=== PATIENT | female | born 1985 | race Caucasian/White ===

== ENCOUNTER 2019-05-19 03:04 | Inpatient (IN) ==
[2019-05-19] MEDS ORDERED: PENICILLIN G POTASSIUM 3 MU in DEXTROSE 5% 100 ML IV PRN (05:50)
[2019-05-19] MEDS ORDERED: PENICILLIN G POTASSIUM 6 MU in DEXTROSE 5% 250 ML IV STA (05:50)
[2019-05-19] MEDS ORDERED: OXYTOCIN 30 UNITS/500 ML BAG IV PRN ×2 (05:50→17:17)
[2019-05-19 06:06] LABS: Hematocrit (blood only) 36.1 % (37-47); Hemoglobin 12.6 g/dL (12.0-16.0); Mean Corpuscular Hemoglobin 31.7 pg (25-34); Mean Corpuscular Volume 90.9 fL (80-100); Mean Platelet Volume 9.9 fL (7.4-10.4); Platelet Count 234 K/uL (130-400); RDW Coefficient of Variation 13.8 % (11.5-14.5); RDW Standard Deviation 45.8 fL (36.4-46.3); Red Blood Count 3.97 M/uL (4.2-5.4); White Blood Count 17.25 K/uL (4.8-10.8)
[2019-05-19 06:11] LABS: Mean Corpuscular Hgb Conc 34.9 g/dL (32-36)
[2019-05-19] MEDS: LACTATED RINGER'S 1,000 ML IV PRN ×2 (06:21→09:07)
[2019-05-19] MEDS ORDERED: fentaNYL citrate 100 MCG/2 ML VIAL ONE (08:16)
[2019-05-19] MEDS ORDERED: ePHEDrine sulfate 50 MG/ML AMP ONE (08:16)
[2019-05-19] MEDS ORDERED: BUPIVACAINE 0.25% 30 ML VIAL ONE ×2 (08:16→10:50)
[2019-05-19] MEDS ORDERED: fentaNYL 2MCG/ML ROPIV 1.25MG/ML 100 ML BAG EPI ONE (08:17)
--- NOTE | 2019-05-19 08:41 | Anesthesiology Consultation ---
Date of Service May 19, 2019 Assessment & Plan (1) Encounter for pre-operative examination: Chart Review Chart Review: Patient NOT seen in Pre Admission Testing and Acceptable Risk for Labor Epidural Consults Requested none ASA ASA2 Proposed Anesthesia Anesthesia Type: Labor Epidural Regional Laterality: Left Risk / Benefits Reviewed With: PT / POA / Parent / Guardian, Accepts Plan and Informed Consent Obtained History Height/Weight Height: 5 ft 6 in Weight: 95.708 kg Allergies Allergy/AdvReac Type Severity Reaction Status Date / Time PROzac TABS Allergy Unknown Uncoded 05/08/19 10:41 Medications Home Medications Medication Instructions Recorded Confirmed Last Taken sertraline 150 mg PO DAILY 02/15/19 05/19/19 1 Day Ago ~05/18/19 Active Medications Generic Name Dose Route Start Last Admin Trade Name Freq PRN Reason Stop Dose Admin Lactated Ringer's 1,000 mls @ 125 mls/hr 05/19/19 05:50 05/19/19 09:07 Lr IV 05/21/19 05:49 999 mls/hr .Q8H PRN Administration L&D Protocol Protocol NPO Date Last Intake of Fluids: 05/19/19 Time Last Intake of Fluids: 08:42 Date Last Intake of Solids: 05/18/19 Time Last Intake of Solids: 10:30 Past Medical History Medical History History of varicella Exercise / Class Metabolic Activity II 4-5 Yardwork/Stairs/Walk up hill Past Surgical History Surgical History History of tonsillectomy Past Anesthesia History No Hx of Anesthesia Complications History of PONV No Hx of PONV Social History Smoking Status: Former smoker Do You Dip or Chew Tobacco: No Hx Alcohol Use: No Hx Substance Use: No Review of Systems Patient denies history of abnormal bleeding or bleeding disorder. Patient denies active use of anticoagulants other than low dose aspirin. Patient denies numbness, tingling or weakness in lower extremities. Physical Exam Vital Signs Last Vital Signs Temp 36.8 C 05/19/19 07:05 Pulse 76 05/19/19 08:35 Resp 20 05/19/19 07:05 BP 143/80 H 05/19/19 07:07 Pulse Ox 98 05/19/19 08:35 Constitutional not obese () ENMT Mouth: no TMJ abnormality and oral opening not small Thyromental Distance: > or= 3.5 Finger Breadths Mallampati Class: II Neck normal visual inspection; neck extension not limited Respiratory normal respiratory effort Auscultation: lungs clear to auscultation bilaterally Cardiovascular Rate/Rhythm: regular rate and regular rhythm Heart Sounds: no murmur Neurologic moves all extremities Motor/Sensory: no sensory deficit Psychiatric Orientation: alert and oriented x 3 Testing Laboratory Results 05/19/19 05:58
[2019-05-19] MEDS ORDERED: NALOXONE HCL 1 MG in SODIUM CHLORIDE 0.9% 1000ML 1,000 ML IV PRN (09:45)
[2019-05-19] MEDS ORDERED: NALOXONE HCL 0.4 MG/1 ML VIAL/CARP IV PRN (09:45)
[2019-05-19] MEDS ORDERED: ePHEDrine sulfate 50 MG/ML AMP IV PRN (09:45)
[2019-05-19] MEDS ORDERED: NALBUPHINE HCL INJ 10 MG/ML AMP IV PRN (09:45)
[2019-05-19] MEDS ORDERED: DiphenhydrAMINE HCL 50 MG/ML VIAL IV PRN (09:45)
[2019-05-19] MEDS ORDERED: ONDANSETRON INJ 2 MG/ML 2 ML VIAL IV PRN (09:45)
[2019-05-19] MEDS ORDERED: fentaNYL 2MCG/ML ROPIV 1.25MG/ML 100 ML BAG EPI PRN (09:45)
--- NOTE | 2019-05-19 10:20 | History & Physical Report ---
Date of Service May 19, 2019 Assessment & Plan (1) Supervision of elderly primigravida: 33YO at 39.3 weeks GA. Labor 1. Fetus: Cat 1 2: Labor: Progressing. Will AROM when PCN complete 3. Vitals: WNL 4. GBS: Positive History of Present Illness Primary Care Provider: Cecy Sanford, 33YO at 39.3 weeks GA. Present for labor. Denied VB, LOF. Good FM. complicated by AMA, GBS positive. Allergies Allergy/AdvReac Type Severity Reaction Status Date / Time PROzac TABS Allergy Unknown Uncoded 05/08/19 10:41 Home Medications Home Medications Medication Instructions Recorded Confirmed Type sertraline 150 mg PO DAILY 02/15/19 05/19/19 History Patient History Medical History History of varicella Surgical History History of tonsillectomy Social History Preferred Language: [place]an Communication Ability: Effective Beliefs That Will Affect Care: None marital status: Single Current Living Situation Comment: Lives with friend Other Information That Helps Us Care for You: No Feels Safe at Home: Yes Safety Concerns: Feels Safe At This Time Smoking Status: Former smoker Do You Dip or Chew Tobacco: No ; Second Hand Exposure: No ; Tobacco Cessation Education Requested by Patient: No Hx Alcohol Use: No Hx Substance Use: No Physical Exam Constitutional: WD/WN, vitals as above Psychiatric: A+Ox3, euthymic affect Genitourinary: OB Exam Abdomen: + vertex Manual OB Exam: + cervical d ilation (3/80/-3> 4.5/80/-3) and + amniotic fluid OB Exam Monitor Tracing: + external FHT monitor used, + external uterine monitor used, + category I and + normal FHT variability Results & Data Vital Signs (Past 12 Hours) Vital Signs Temp Pulse Resp BP 05/19/19 03:25 37.0 C 76 20 135/80 05/19/19 03:18 76 135/80
--- NOTE | 2019-05-19 10:29 | Labor Progress Brief Note ---
Date of Service May 19, 2019 Subjective Reason For Note: Routine Evaluation Assessment & Plan (1) Supervision of elderly primigravida: 33YO at 39.3 weeks GA. Labor 1. Fetus: Cat 1 2: Labor: Progressing. AROM clr 3. Vitals: WNL 4. GBS Positive - PCN Physical Exam Genitourinary: Manual OB Exam: + cervical dilation 8 cm, + cervical effacement 100%, + station 0 and + amniotic fluid clear OB Exam Monitor Tracing: + external FHT monitor used, + external uterine monitor used, + category I and + normal FHT variability Results & Data Vital Signs (Past 12 Hours) Vital Signs Temp Pulse Resp BP Pulse Ox 05/19/19 10:25 73 94 05/19/19 10:21 80 93 05/19/19 10:20 77 94 05/19/19 10:15 71 97 05/19/19 10:11 71 145/71 H 05/19/19 10:10 71 98 05/19/19 10:09 66 177/81 H 05/19/19 10:08 68 172/91 H 05/19/19 10:05 86 100 05/19/19 10:04 92 H 151/66 H 05/19/19 10:00 88 130/57 L 95 05/19/19 09:56 85 94 05/19/19 09:55 84 96 05/19/19 09:53 84 129/60 05/19/19 09:50 85 96 05/19/19 09:48 86 20 139/64 05/19/19 09:45 81 20 137/60 97 05/19/19 09:40 80 98 05/19/19 09:36 81 20 125/63 05/19/19 09:35 89 132/72 98 05/19/19 09:32 80 20 130/71 05/19/19 09:30 36.5 C 88 16 130/71 97 05/19/19 09:29 93 H 20 129/59 L 05/19/19 09:27 93 H 20 125/71 05/19/19 09:25 85 96 05/19/19 09:24 86 130/60 05/19/19 09:22 88 133/63 05/19/19 09:21 85 128/59 L 05/19/19 09:20 86 96 05/19/19 09:17 83 132/72 11/10/19 09:15 77 134/82 98 05/19/19 09:13 76 137/82 05/19/19 09:10 77 97 05/19/19 09:05 77 96 05/19/19 09:00 92 H 97 05/19/19 08:55 99 H 96 05/19/19 08:51 82 20 142/76 H 05/19/19 08:50 101 H 98 05/19/19 08:45 82 97 05/19/19 08:40 81 98 05/19/19 08:35 76 98 05/19/19 08:30 74 98 05/19/19 08:25 77 98 05/19/19 07:07 66 143/80 H 05/19/19 07:05 36.8 C 20 05/19/19 03:25 37.0 C 76 20 135/80 05/19/19 03:18 76 135/80
[2019-05-19] MEDS ORDERED: COSYNTROPIN 1,000 MCG in SODIUM CHLORIDE 0.9% 50 ML IV ONE (13:06)
--- NOTE | 2019-05-19 17:07 | Anesthesiology Progress Note ---
Date of Service May 19, 2019 Subjective Patient with known dural puncture during epidural placement. Was given an int rathecal catheter during labor which worked well. Was given cosyntropin 30 minutes after delivery to decrease the risk of PDPH. Met with patient and reviewed epidural versus intrathecal catheters and the associated risk of PDPH. Offered to pull the catheter now or leave in place for 24 hours to hopefully also decrease risk of PDPH. Patient is undecided at this time. Catheter site is notable for dried blood and poorly sticking tegaderm. Will revisit patient later this evening. If patient chooses to keep catheter overnight, will clean and redress catheter prior to leaving to ensure occlusive dressing does not fall off overnight. Silvia Rose MD, PhD Anesthesiologist Physical Exam Vital Signs: Last Vital Signs Temp 36.6 C 05/19/19 14:00 Pulse 89 05/19/19 16:40 Resp 20 05/19/19 15:30 BP 133/61 05/19/19 16:40 Pulse Ox 97 05/19/19 13:40 Results & Data Medications Administered Lactated Ringer's (Lr) 1,000 mls @ 125 mls/hr IV .Q8H PRN; Protocol PRN Reason: L&D Protocol Stop: 05/21/19 05:49 Last Infusion: 05/19/19 13:40 Dose: 0 mls/hr Documented by: [id number] Infusion: 05/19/19 09:40 Dose: 125 mls/hr Documented by: [id number] Admin: 05/19/19 09:07 Dose: 999 mls/hr Documented by: [id number] Infusion: 05/19/19 09:07 Dose: 999 mls/hr Documented by: [id number] Infusion: 05/19/19 08:30 Dose: 999 mls/hr Documented by: [id number] Infusion: 05/19/19 07:50 Dose: 0 mls/hr Documented by: [id number] Infusion: 05/19/19 07:01 Dose: 125 mls/hr Documented by: [id number] Admin: 05/19/19 06:21 Dose: 125 mls/hr Documented by: [id number] Penicillin G Potassium 3 mu/ (Dextrose) 106 mls @ 100 mls/hr IV Q4H PRN PRN Reason: Give until delivery Stop: 05/29/19 05:49 Last Infusion: 05/19/19 11:15 Dose: 0 mls/hr Documented by: [id number] Admin: 05/19/19 10:11 Dose: 100 mls/hr Documented by: [id number] Oxytocin (Pitocin) 30 units in 500 mls @ 333.333 mls/hr IV .Q1H30M PRN; Protocol PRN Reason: Bleeding Control Stop: 06/18/19 05:49 Last Titration: 05/19/19 14:28 Dose: 0 units/hr, 0 mls/hr Documented by: [id number] Admin: 05/19/19 13:43 Dose: 59.94 units/hr, 999 mls/hr Documented by: [id number] Cosigned by: [id number]
[2019-05-19] MEDS ORDERED: HYDROCORTISONE ACETATE 25 MG SUPP PR PRN (17:17)
[2019-05-19] MEDS ORDERED: DIPHTHERIA/TETANUS/PERTUSSIS 0.5 ML SYR/VIAL IM ONE (17:17)
[2019-05-19] MEDS ORDERED: BENZOCAINE 20% AER SPR 82.5 GM CAN EXT PRN (17:17)
[2019-05-19] MEDS ORDERED: SUPERCREAM 0.870% 15 GM JAR EXT PRN (17:17)
[2019-05-19] MEDS ORDERED: ACETAMINOPHEN 325 MG TAB PO PRN (17:17)
--- NOTE | 2019-05-19 19:31 | Anesthesiology Progress Note ---
Date of Service May 19, 2019 Anesthesia Post Procedure Vital Signs Vital Signs: Temp Pulse Pulse Resp BP BP Pulse Ox 05/19/19 17:15 37 C 91 H 18 144/76 H 98 05/19/19 16:40 36.7 C 89 18 133/61 05/19/19 16:27 98 H 145/63 H 05/19/19 16:12 94 H 137/62 05/19/19 15:57 90 140/80 05/19/19 15:42 80 150/67 H 05/19/19 15:30 20 05/19/19 15:27 88 125/73 05/19/19 15:12 85 126/63 05/19/19 15:00 18 05/19/19 14:57 82 149/65 H 05/19/19 14:45 18 05/19/19 14:42 86 136/64 05/19/19 14:30 18 05/19/19 14:27 83 133/59 L 05/19/19 14:15 18 05/19/19 14:13 84 137/76 05/19/19 14:02 83 129/67 05/19/19 14:00 36.6 C 20 05/19/19 13:57 90 140/60 05/19/19 13:40 92 H 97 05/19/19 13:38 100 H 93 05/19/19 13:35 108 H 98 05/19/19 13:33 91 H 90 05/19/19 13:30 94 H 97 05/19/19 13:27 100 H 147/74 H 05/19/19 13:25 93 H 99 05/19/19 13:20 102 H 96 05/19/19 13:15 83 100 05/19/19 13:13 87 141/82 H 05/19/19 13:10 80 99 05/19/19 13:05 89 99 05/19/19 13:00 94 H 100 05/19/19 12:58 36.5 C 20 05/19/19 12:57 90 135/69 05/19/19 12:55 83 99 05/19/19 12:50 85 99 05/19/19 12:49 88 93 05/19/19 12:45 85 97 05/19/19 12:43 77 125/71 05/19/19 12:42 85 89 L 05/19/19 12:40 84 98 05/19/19 12:35 83 99 05/19/19 12:34 83 93 05/19/19 12:30 82 98 05/19/19 12:27 85 141/79 H 05/19/19 12:25 87 97 05/19/19 12:20 83 99 05/19/19 12:15 87 100 05/19/19 12:14 79 18 115/61 05/19/19 12:10 80 99 05/19/19 12:05 80 99 05/19/19 12:00 80 99 05/19/19 11:58 79 126/57 L 05/19/19 11:55 82 99 05/19/19 11:50 85 95 05/19/19 11:45 73 98 05/19/19 11:43 72 145/74 H 05/19/19 11:40 78 99 05/19/19 11:35 66 98 05/19/19 11:30 72 98 05/19/19 11:28 73 134/79 05/19/19 11:25 70 98 05/19/19 11:20 68 97 05/19/19 11:15 69 98 05/19/19 11:14 70 20 137/70 05/19/19 11:10 67 97 05/19/19 11:06 78 130/62 05/19/19 11:05 75 98 05/19/19 11:00 104 H 99 05/19/19 10:59 82 139/91 05/19/19 10:57 36.6 C 20 05/19/19 10:55 77 100 05/19/19 10:50 76 100 05/19/19 10:45 70 100 05/19/19 10:42 84 131/60 05/19/19 10:40 81 100 05/19/19 10:35 83 100 05/19/19 10:33 80 94 05/19/19 10:30 74 97 05/19/19 10:27 78 136/73 94 05/19/19 10:25 73 94 05/19/19 10:21 80 93 05/19/19 10:20 77 94 05/19/19 10:15 71 97 05/19/19 10:11 71 145/71 H 05/19/19 10:10 71 98 05/19/19 10:09 66 177/81 H 05/19/19 10:08 68 172/91 H 05/19/19 10:05 86 100 05/19/19 10:04 92 H 151/66 H 05/19/19 10:00 88 130/57 L 95 05/19/19 09:56 85 94 05/19/19 09:55 84 96 05/19/19 09:53 84 129/60 05/19/19 09:50 85 96 05/19/19 09:48 86 20 139/64 05/19/19 09:45 81 20 137/60 97 05/19/19 09:40 80 98 05/19/19 09:36 81 20 125/63 05/19/19 09:35 89 132/72 98 05/19/19 09:32 80 20 130/71 05/19/19 09:30 36.5 C 88 16 130/71 97 05/19/19 09:29 93 H 20 129/59 L 05/19/19 09:27 93 H 20 125/71 05/19/19 09:25 85 96 05/19/19 09:24 86 130/60 05/19/19 09:22 88 133/63 05/19/19 09:21 85 128/59 L 05/19/19 09:20 86 96 05/19/19 09:17 83 132/72 05/19/19 09:15 77 134/82 98 05/19/19 09:13 76 137/82 05/19/19 09:10 77 97 05/19/19 09:05 77 96 05/19/19 09:00 92 H 97 05/19/19 08:55 99 H 96 05/19/19 08:51 82 20 142/76 H 05/19/19 08:50 101 H 98 05/19/19 08:45 82 97 05/19/19 08:40 81 98 05/19/19 08:35 76 98 05/19/19 08:30 74 98 05/19/19 08:25 77 98 05/19/19 07:07 66 143/80 H 05/19/19 07:05 36.8 C 20 05/19/19 03:25 37.0 C 76 20 135/80 05/19/19 03:18 76 135/80 Transfer of Care Handoff Completed per policy Notes Mental Status: alert / awake / arousable and participated in evaluation Nausea / Vomiting: adequately controlled Pain: adequately controlled Airway Patency, RR, SpO2: stable & adequate BP & HR: stable & adequate Hydration State: stable & adequate Neuraxial Anesthesia: was administered and sensory block resolved Anesthetic Complications: see Notes below and Pt Satisfied with anesthetic care Notes: Patient has decided to keep catheter overnight to hopefully decrease her risk of PDPH. The original occlusive dressing was no longer sticking well. While wearing hat and mask, the original occlusive dressing was removed. The site was washed with duraprep and a new tegaderm was applied while wearing sterile gloves. The catheter is 11cm at the skin and the area around the catheter is clean, dry and intact without signs of edema or erythema. The patient reports mild back tenderness at the insertion site, but has no other complaints. She denies headache and has been up ambulating without numbness or weakness. Sign out of patient was provided to the OB anesthesiologist for tomorrow. Plan is to remove the catheter in the morning.
[2019-05-19] MEDS: DOCUSATE SODIUM 100 MG CAP PO SCH (19:45)
[2019-05-19] MEDS: IBUPROFEN 600 MG TAB PO PRN (21:10)
--- NOTE | 2019-05-20 00:41 | Delivery Summary ---
DATE OF OPERATION: 05/19/2019 PROCEDURES: Normal spontaneous vaginal delivery with bilateral vaginal wall and right labial laceration repair. SURGEON: Prasanna Martinez MD PREOPERATIVE DIAGNOSES: 1. Single intrauterine at 39 weeks 3 days gestational age. 2. Labor. 3. GBS positive. 4. Advanced maternal age. POSTOPERATIVE DIAGNOSES: 1. Single intrauterine at 39 weeks 3 days gestational age. 2. Labor. 3. GBS positive. 4. Advanced maternal age. 5. Status post delivery. ESTIMATED BLOOD LOSS: 400 mL. DRAINS: Straight cath after delivery for 700 mL of urine. URINE OUTPUT: Please see above. COMPLICATIONS: None. FINDINGS: Viable male infant with weight pending and Apgars of 8 and 9 at 1 and 5 minutes respectively. INDICATIONS: Arleen is a 33-year-old G1, P0, admitted at 39 weeks 3 days gestational age in labor. At initial evaluation, the patient was found to be 3 cm dilated, 80% effaced, -3 station. After recheck 2 hours later, she was found to be 4.5 cm dilated, 80% effaced, -3 station. The patient was admitted at that time and continued to progress in labor until she was approximately 6-7 cm dilated, at which time she did request an epidural. After receiving the epidural, she underwent artificial rupture of membranes for clear fluid and continued to progress in labor to complete-complete, +2 station, at which time she felt the urge to push. DESCRIPTION OF PROCEDURE: The patient progressed to 10 cm dilated, 100% effaced, +2 station, pushed over intact perineum with epidural anesthesia and delivered a viable male infant, weight and Apgars as noted above. Head of the delivered in SCOTT position and rest into right transverse. There was noted to be a nuchal cord which was delivered through as it was not able to be easily reduced. Body and shoulders quickly followed. was delivered to maternal abdomen and was noted to be vigorous soon after delivery. A 1-minute delayed cord clamping was initiated, after which the cord was double clamped and cut. Cord blood was then obtained. Attention was then turned to delivery of the placenta, which was delivered intact with 3-vessel cord, gentle cord traction. On inspection of perineum, vagina, and cervix, there was noted to be posterior vaginal wall lacerations which were relatively superficial. These were reapproximated due to bleeding with 3-0 Vicryl and interrupted stitch. A right labial laceration was repaired as well with a single interrupted stitch of 3-0 Vicryl. Needle, sponge and instrument counts were correct at the completion of the case. Both mother and were stable in the immediate post-delivery. I attest to the content of the Intraoperative Record and any orders documented therein. Any exception s are noted below.
--- NOTE | 2019-05-20 06:58 | Obstetrical Progress Note ---
Date of Service <Finn Novak DO - Last Filed: 05/20/19 07:03> May 20, 2019 Assessment & Plan <DO Samara Gordon Last Filed: 05/20/19 07:03> (1) : -PPD#1 -Vitals reviewed, WNL (Tmax 37.1) - GBS +, Blood Type B+ - PCN prepartum - Clinically stable. - Feels well today. Eating well, voiding well, ambulating well. - Pain well controlled. - Routine post- care - After discharge will have [address] Martinez. Day #:: 1 Subjective <DO Samara Gordon Last Filed: 05/20/19 07:03> Ambulation: ambulating normally Voiding: no voiding problems Passing Gas:: Yes Diet Tolerance:: regular diet Lochia:: Moderate Feeding Type:: breast feeding Current Pain Level(1-10): 2 (improves with analgesics) Patient is a 33 PPD#1. Patient states that she is feeling well today and that her pain is well controlled. She has no other complaints at this time. Constitutional: no fever and no chills Respiratory: + cough (chronic for a few weeks now); no dyspnea and no wheezing Cardiovascular: no chest pain, no dyspnea, no palpitations, no edema and no calf pain Breast: no breast pain Gastrointestinal: no abdominal pain, no nausea and no vomiting Genitourinary (female): no dysuria and no difficulty urinating Neurologic: no headache(s) Physical Exam <DO Samara Gordon Last Filed: 05/20/19 07:03> Constitutional WD/WN, vitals as above Respiratory normal respiratory effort, lungs clear to auscultation Cardiovascular Rate/Rhythm: regular rate and regular rhythm Heart Sounds: normal S1 and normal S2; no click, no gallop, no murmur and no cardiac rub Extremities: + edema (+1); no calf tenderness Gastrointestinal (Abdomen) Inspection/Auscultation: abdomen normal to inspection and normal bowel sounds Percussion/Palpation: abdomen soft; abdomen nontender Genitourinary OB Exam Abdomen: + fundal height Fundus: + firm and + relation to umbilicus (3cm below); not tender and not boggy Results & Data <Finn AntuneznDO Pascual Last Filed: 05/20/19 07:03> Vital Signs (Past 12 Hours) Vital Signs Temp Pulse Resp BP Pulse Ox 05/20/19 03:10 36.9 C 82 16 134/75 99 05/19/19 23:15 37.1 C 86 16 133/84 99 05/19/19 19:30 36.8 C 94 H 16 144/83 H 99 <Prasanna Martinez MD - Last Filed: 05/20/19 07:07> Co-Signing Physician Notes Patient seen and evaluated and agree with the above findings and plan. Stable for discharge Resident Activity Tracking <Finn Novak DO - Last Filed: 05/20/19 07:03> Resident Involvement: Resident Care Provided Care Provided: OB Delivery
[2019-05-20 07:19] LABS: Hematocrit (blood only) 27.7 % (37-47); Hemoglobin 9.5 g/dL (12.0-16.0)
[2019-05-20] MEDS: IBUPROFEN 600 MG TAB PO PRN ×4 (07:28→23:45)
[2019-05-20] MEDS: PRENATAL VITAMIN 1 TAB PO SCH (07:28)
[2019-05-20] MEDS: DOCUSATE SODIUM 100 MG CAP PO SCH ×2 (07:28→21:09)
[2019-05-20] MEDS: SERTRALINE HCL 100 MG TABLET PO SCH (07:30)
--- NOTE | 2019-05-20 12:35 | Anesthesia Procedure Note ---
Date of Service May 20, 2019 Anesthesia Post Epidural Note Vital Signs Vital Signs: Temp Pulse Resp BP Pulse Ox 36.9 C 82 16 134/75 99 05/20/19 03:10 05/20/19 03:10 05/20/19 03:10 05/20/19 03:10 05/20/19 03:10 Pain Intensity Perineal: Pain Intensity: 2 Notes Mental Status: alert / awake / arousable Nausea / Vomiting: adequately controlled Pain: adequately controlled Airway Patency, RR, SpO2: stable & adequate BP & HR: stable & adequate Hydration State: stable & adequate Neuraxial Anesthesia: was administered and sensory block is resolving Anesthetic Complications: no major complications apparent and Pt Satisfied with anesthetic care Epidural: Removed without complications and With tip intact Notes: Intrathecal catheter removed, tip intact. Removal was followed by epidural blood patch, see also Progress Note.
--- NOTE | 2019-05-20 12:48 | Anesthesiology Progress Note ---
Date of Service May 20, 2019 Subjective Pt reportedly had inadvertent dural puncture during attempted placement of epi dural catheter for labor analgesia. Intrathecal catheter was placed and left in situ with removal planned for this morning. Prior to removal, pt began to c/o severe headache, worse when upright and relieved by recumbency. I discussed with her that this is consistent with PDPH (post dural puncture headache). I described to pt conservative vs aggressive management with epidural blood patch. Pt expressed understanding and opted for blood patch. Informed consent obtained. Pt identified, time-out performed. In sitting position, intrathecal catheter was removed without difficulty, tip intact. Lumbar skin prepped with Duraprep and draped sterile. Local 1% lidocaine given to skin at L3 - L4 interspace. 18g Touhy needle advanced until LORT obtained at 6cm. 20cc blood drawn from right antecubital vein by DIRECTOR OF CULTURE after failed attempt at left hand. 20cc blood injected to epidural space without complaint of pain or pressure. Pt reported immediate and complete relief of headache. Pt should rest supine for 1 hour and restrict activity for 24 hours, then ad mishel. Re-consult if needed\. Physical Exam Vital Signs: Last Vital Signs Temp 36.9 C 05/20/19 03:10 Pulse 82 05/20/19 03:10 Resp 16 05/20/19 03:10 BP 134/75 05/20/19 03:10 Pulse Ox 99 05/20/19 03:10 Results & Data Medications Administered Benzocaine (Dermoplast Pain Relieving [place]) 1 appln EXT PRN PRN PRN Reason: Perineal Discomfort Stop: 06/18/19 17:16 Last Admin: 05/19/19 17:38 Dose: 1 appln Documented by: [id number] Docusate Sodium (Colace) 100 mg PO DAILY@08,21 [facility] Stop: 06/18/19 20:59 Last Admin: 05/20/19 07:28 Dose: 100 mg Documented by: [id number] Admin: 05/19/19 19:45 Dose: 100 mg Documented by: [id number] Lactated Ringer's (Lr) 1,000 mls @ 125 mls/hr IV .Q8H PRN; Protocol PRN Reason: L&D Protocol Stop: 05/21/19 05:49 Last Infusion: 05/19/19 13:40 Dose: 0 mls/hr Documented by: [id number] Infusion: 05/19/19 09:40 Dose: 125 mls/hr Documented by: [id number] Admin: 05/19/19 09:07 Dose: 999 mls/hr Documented by: [id number] Infusion: 05/19/19 09:07 Dose: 999 mls/hr Documented by: [id number] Infusion: 05/19/19 08:30 Dose: 999 mls/hr Documented by: [id number] Infusion: 05/19/19 07:50 Dose: 0 mls/hr Documented by: [id number] Infusion: 05/19/19 07:01 Dose: 125 mls/hr Documented by: [id number] Admin: 05/19/19 06:21 Dose: 125 mls/hr Documented by: [id number] Oxytocin (Pitocin) 30 units in 500 mls @ 333.333 mls/hr IV .Q1H30M PRN; Protocol PRN Reason: Bleeding Control Stop: 06/18/19 05:49 Last Titration: 05/19/19 14:28 Dose: 0 units/hr, 0 mls/hr Documented by: [id number] Admin: 05/19/19 13:43 Dose: 59.94 units/hr, 999 mls/hr Documented by: [id number] Cosigned by: [id number] Ibuprofen (Motrin) 600 mg PO Q4H PRN PRN Reason: Pain/DE PAZ/Cramping/Fever Stop: 06/18/19 17:16 Last Admin: 05/20/19 07:28 Dose: 600 mg Documented by: [id number] Admin: 05/19/19 21:10 Dose: 600 mg Documented by: [id number] Prenat Multivit/[place]/Iron/Folic Ac ( Vitamin) 1 tab PO DAILY@08 [facility] Stop: 06/19/19 07:59 Last Admin: 05/20/19 07:28 Dose: 1 tab Documented by: [id number] Sertraline HCl (Zoloft) 150 mg PO DAILY [facility] Stop: 06/19/19 08:59 Last Admin: 05/20/19 07:30 Dose: 150 mg Documented by: [id number]
[2019-05-20] MEDS ORDERED: BISACODYL 5 MG TABEC PO SCH (20:00)
--- NOTE | 2019-05-21 06:32 | Obstetrical Progress Note ---
Date of Service <Finn Novak DO - Last Filed: 05/21/19 06:32> May 21, 2019 Assessment & Plan <DO Samara Gordon Last Filed: 05/21/19 06:32> (1) : -PPD#2 -Vitals reviewed, WNL (Tmax 37.0) - GBS +, Blood Type B+ - PCN prepartum - Clinically stable. - Feels well today. Eating well, voiding well, ambulating well. - Pain well controlled. - Routine post- care - After discharge will have [address] Martinez. Day #:: 2 Subjective <DO Samara Gordon Last Filed: 05/21/19 06:32> Ambulation: ambulating normally Voiding: no voiding problems Passing Gas:: Yes Diet Tolerance:: regular diet Lochia:: Small Feeding Type:: breast feeding Current Pain Level(1-10): 2 (improves with analgesics) Patient is a 33 PPD#2. Patient states that she is feeling well today and that her pain is well controlled. She has no other complaints at this time. Constitutional: no fever and no chills Respiratory: + cough (chronic x 4 weeks); no dyspnea and no wheezing Cardiovascular: no chest pain, no dyspnea, no palpitations, no edema and no calf pain Breast: + breast pain (nipple pain with feedings) Gastrointestinal: no abdominal pain, no nausea and no vomiting Genitourinary (female): no dysuria and no difficulty urinating Neurologic: no headache(s) Physical Exam <Finn AntuneznDO Pascual Last Filed: 05/21/19 06:32> Constitutional WD/WN, vitals as above Respiratory normal respiratory effort, lungs clear to auscultation Cardiovascular Rate/Rhythm: regular rate and regular rhythm Heart Sounds: normal S1 and normal S2; no click, no gallop, no murmur and no cardiac rub Extremities: + edema (+1); no calf tenderness Gastrointestinal (Abdomen) Inspection/Auscultation: abdomen normal to inspection and normal bowel sounds Percussion/Palpation: abdomen soft; abdomen nontender Genitourinary OB Exam Abdomen: + fundal height Fundus: + firm and + relation to umbilicus (2cm below); not tender and not boggy Results & Data <Finn DO Scar[place] - Last Filed: 05/21/19 06:32> Vital Signs (Past 12 Hours) Vital Signs Temp Pulse Resp BP 05/20/19 23:45 36.4 C L 83 18 144/77 H 05/20/19 19:50 36.8 C 88 20 136/80 <Rachel Conner MD, FACOG - Last Filed: 05/21/19 07:27> Co-Signing Physician Notes Resident Physician Supervision Note: I was present with Dr. Novak during the history and exam. I discussed the case with the resident and agree with the findings and plan as documented in the note. Any exceptions or clarifications are listed here: doing well, ready for d/c home, instructions reviewed, f/u 6wks pp check. Documented By: Rachel Conner MD, FACOG Resident Activity Tracking <Finn Novak DO - Last Filed: 05/21/19 06:32> Resident Involvement: Resident Care Provided Care Provided: OB Delivery
[2019-05-21] MEDS: SERTRALINE HCL 100 MG TABLET PO SCH (08:17)
[2019-05-21] MEDS: PRENATAL VITAMIN 1 TAB PO SCH (08:17)
[2019-05-21] MEDS: DOCUSATE SODIUM 100 MG CAP PO SCH (08:17)
[2019-05-21] MEDS ORDERED: BISACODYL 10 MG SUPP PR PRN (09:00)
== END 2019-05-21 12:05 | disposition home or self-care (01) | DRG 807 ==
LOC: OPB 03:04 → 4S1 03:07 → 4S2 17:00